=== PATIENT | female | born 1950 | race Caucasian/White ===

== ENCOUNTER → 2017-12-03 | Day surgery (SDC) | payer MEDICARE, OTHER ==
[~2017-12-03] MED LIST: Lactated Ringers 1,000 ML IV SCH; Propofol 200 MG/20 ML SDV IV ONE
[2017-12-03 11:23] VITALS: BP 113/67
--- NOTE | 2017-12-03 11:36 | OR ---
DATE OF OPERATION: 12/03/2017 PREOPERATIVE DIAGNOSIS: HISTORY OF DYSPLASTIC POLYPS. POSTOPERATIVE DIAGNOSIS: HISTORY OF DYSPLASTIC POLYPS. SURGEON: Brendan Granados MD PROCEDURE: COLONOSCOPY TO RIGHT COLON. ANESTHESIA: ASSISTANT BOOKKEEPER due to morbid obesity. COMPLICATIONS: None. SPECIMEN: None. FINDINGS: Normal full length colonoscopy to right colon. RECOMMENDATIONS: Follow up colonoscopy in 3-5 years. INDICATIONS: The patient has a history of polyp removal. I believe one of her polyps in the past was dysplastic and she has had every two years scope since then. DESCRIPTION OF PROCEDURE: The patient was prepped and draped, placed in the left lateral decubitus position. A lubricated Olympus colonoscope was inserted and with significant amount of difficulty advanced to the hepatic flexure. The patient is markedly tortuous especially through the transverse colon, it was very difficult and we had to put her in two or three different positions to traverse this area. We were able to get the scope into the hepatic flexure region. Looks like we are able to look down the ascending colon, but we were unable to get over to the cecal pouch after repeated attempts. The bowel prep was fine. Upon withdrawal of the scope of what we could see of the distal right colon, transverse and descending areas were all benign. The sigmoid colon had no signs of any polyps, masses, ulcerations, or bleeding sites. No vascular abnormalities or signs of colitis. The rectal vault was unremarkable. Retroflexion showed no apparent lesions. Air was suctioned. Scope removed without complication. ESSENCE/PIETRO /[id number]
== END ==
LOC: CC.SDS 08:40
PROVIDERS: ATTEND Family Medicine
DX: Z12.11 Encounter for screening for malignant neoplasm of colon (principal); K56.2 Volvulus; Z86.010 Personal history of colon polyps; I10 Essential (primary) hypertension; E78.5 Hyperlipidemia, unspecified; E03.9 Hypothyroidism, unspecified; M19.90 Unspecified osteoarthritis, unspecified site; K21.9 Gastro-esophageal reflux disease without esophagitis; E55.9 Vitamin D deficiency, unspecified; Z88.5 Allergy status to narcotic agent; Z88.8 Allergy status to other drugs, medicaments and biological substances; Z88.2 Allergy status to sulfonamides
CPT/HCPCS: J2704; J7120

== ENCOUNTER → 2018-11-24 | Day surgery (SDC) | payer MEDICARE, OTHER ==
[~2018-11-24] MED LIST changes: +ALPRAZolam 0.5 MG Tab.DIS (ODT) PO ONE; +ALPRAZolam ODT 0.25 MG Tab ONE; -Lactated Ringers 1,000 ML IV SCH; +Lidocaine 1% 20 ML MDV ONE; -Propofol 200 MG/20 ML SDV IV ONE
[2018-11-24 08:04] VITALS: BP 130/73; PULSE 62
== END ==
LOC: CC.SDS 07:59
PROVIDERS: ATTEND Family Medicine
DX: I83.11 Varicose veins of right lower extremity with inflammation (principal); I83.811 Varicose veins of right lower extremity with pain

== ENCOUNTER → 2018-12-06 | Day surgery (SDC) | payer MEDICARE, OTHER ==
[~2018-12-06] MED LIST changes: -ALPRAZolam 0.5 MG Tab.DIS (ODT) PO ONE; -ALPRAZolam ODT 0.25 MG Tab ONE
[2018-12-06 08:59] VITALS: BP 135/75; PULSE 60
== END ==
LOC: CC.SDS 07:51
PROVIDERS: ATTEND Family Medicine
DX: I83.812 Varicose veins of left lower extremity with pain (principal)
CPT/HCPCS: A4216

== ENCOUNTER → 2019-06-30 | Day surgery (SDC) | payer MEDICARE, OTHER ==
[~2019-06-30] MED LIST changes: +Glycopyrrolate 0.2 MG/ML SDV IVPUSH ONE; +Lactated Ringers 1,000 ML IV SCH; -Lidocaine 1% 20 ML MDV ONE; +Propofol 200 MG/20 ML SDV IV ONE; +fentaNYL 100 MCG/2 ML SDV IV ONE
[2019-06-30 08:58] VITALS: BP 121/70; PULSE 89
--- NOTE | 2019-06-30 14:29 | OR ---
DATE OF OPERATION: 06/30/2019 PREOPERATIVE DIAGNOSIS: GASTROESOPHAGEAL REFLUX DISEASE, DYSPEPSIA. POSTOPERATIVE DIAGNOSIS: GASTROESOPHAGEAL REFLUX DISEASE, DYSPEPSIA. SURGEON: Brendan Granados MD PROCEDURE: DIAGNOSTIC ESOPHAGOGASTRODUODENOSCOPY WITH BIOPSIES X2, CARRIE. ANESTHESIA: MAC. COMPLICATIONS: None. SPECIMEN: 1. Anastomosis biopsy x2. 2. CLOtest. FINDINGS: 1. Full-length EGD. 2. Status post gastric stapling. 3. Anastomotic ulcer. 4. Small recurrent hiatal hernia. RECOMMENDATIONS: The patient will be placed on proton pump therapy and have followup with Dr. Montiel at [facility]. INDICATIONS: The patient had a hernia repair at the time of stapling procedure of her stomach in 1983. She has been having increasing dyspepsia and heartburn, similar to the symptoms she felt at the time of her hernia repair. Dr. Montiel sent her for diagnostic scope. DESCRIPTION OF PROCEDURE: The patient was prepped and draped, placed in the left lateral decubitus position. A lubricated Olympus gastroscope was inserted over a bit, advanced to cricopharyngeus area, and easily intubated in the esophagus. The esophageal lining was benign in its entire course. The Z-line was crisp around 38 cm. There was a small recurrent hernia, but not very large. There was no distal esophagitis, stricturing, ulceration, nor Humphrey's changes, and I saw no spontaneous reflux. The scope was advanced to the stomach. The patient had a prior gastric bypass type procedure and the anastomosis looked fine other than some inflammation and a small ulcer at the anastomosis site. Biopsy of that was taken along with a CLOtest. The rest of the fundus and cardia portion of the stomach appeared benign. I was able to retroflex and there was a small recurrent hernia present, seen from above and below. Air was then suctioned, scope removed without complication. ESSENCE/PIETRO /[id number]
== END ==
LOC: CC.SDS 07:07
PROVIDERS: ATTEND Family Medicine
DX: K29.50 Unspecified chronic gastritis without bleeding (principal); K44.9 Diaphragmatic hernia without obstruction or gangrene; K28.9 Gastrojejunal ulcer, unspecified as acute or chronic, without hemorrhage or perforation; E78.5 Hyperlipidemia, unspecified; E03.9 Hypothyroidism, unspecified; I10 Essential (primary) hypertension; K21.9 Gastro-esophageal reflux disease without esophagitis; E78.00 Pure hypercholesterolemia, unspecified; F41.9 Anxiety disorder, unspecified; Z88.2 Allergy status to sulfonamides; Z88.8 Allergy status to other drugs, medicaments and biological substances; Z79.890 Hormone replacement therapy; Z79.899 Other long term (current) drug therapy; Z98.84 Bariatric surgery status
CPT/HCPCS: 00731; 43239; 87081; J2704; J3010; J3490; J7120

== ENCOUNTER → 2020-11-29 | Day surgery (SDC) | payer MEDICARE, OTHER ==
[~2020-11-29] MED LIST changes: -Glycopyrrolate 0.2 MG/ML SDV IVPUSH ONE; -Propofol 200 MG/20 ML SDV IV ONE; +Propofol 200 MG/20 ML SDV ONE; -fentaNYL 100 MCG/2 ML SDV IV ONE
[2020-11-29 12:06] VITALS: BP 119/68; PULSE 55
--- NOTE | 2020-11-30 06:36 | OR ---
DATE OF OPERATION: 11/29/2020 PREOPERATIVE DIAGNOSIS: HISTORY OF POLYPS. POSTOPERATIVE DIAGNOSIS: HISTORY OF POLYPS. SURGEON: Brendan Granados MD PROCEDURE: FULL-LENGTH COLONOSCOPY WITH FORCEPS POLYP REMOVAL X2. ANESTHESIA: MAC. COMPLICATIONS: None. SPECIMEN: Two small sessile polyps, each less than 0.5 cm. RECOMMENDATIONS: Followup colonoscopy in 5 years. INDICATIONS: The patient has multiple prior colonoscopies for polyps being removed, I believe 6 in the last 12 years. She is in for a 3-year followup. DESCRIPTION OF PROCEDURE: The patient was prepped and draped, placed in the left lateral decubitus position. A lubricated Olympus colonoscope was inserted and ultimately advanced to the cecum. Direct visualization of the ileocecal valve and appendiceal orifice was accomplished. The bowel prep was adequate. There were areas of significant amount of stool, but most of this was liquid and able to be suctioned. Certainly, smaller lesions may have been missed upon withdrawal. Just outside the cecal pouch, the patient had a small 3 to 4 mm flat tubular adenoma removed in its entirety with forceps biopsy x2. The rest of the ascending and transverse colons were benign. At the splenic flexure, the patient had a second small sessile polyp also measuring about 4 mm, removed with a forceps in its entirety. The rest of the descending colon was benign. The patient does have a few scattered diverticula throughout the sigmoid area, mild in severity. There were no other polyps, masses, ulceration, or bleeding sites. No vascular abnormalities or signs of colitis. The rectal vault was benign. Retroflexion showed no perianal lesions. Air was suctioned. The scope removed without complication. ESSENCE/PIETRO /[id number]
== END ==
LOC: CC.SDS 10:06
PROVIDERS: ATTEND Family Medicine
DX: Z12.11 Encounter for screening for malignant neoplasm of colon (principal); D12.0 Benign neoplasm of cecum; K63.5 Polyp of colon; K57.30 Diverticulosis of large intestine without perforation or abscess without bleeding; E78.5 Hyperlipidemia, unspecified; E55.9 Vitamin D deficiency, unspecified; K21.9 Gastro-esophageal reflux disease without esophagitis; E03.9 Hypothyroidism, unspecified; M16.11 Unilateral primary osteoarthritis, right hip; I10 Essential (primary) hypertension; E66.9 Obesity, unspecified; G47.30 Sleep apnea, unspecified; F41.9 Anxiety disorder, unspecified; Z79.899 Other long term (current) drug therapy; Z90.49 Acquired absence of other specified parts of digestive tract; Z98.890 Other specified postprocedural states; Z79.890 Hormone replacement therapy; Z88.8 Allergy status to other drugs, medicaments and biological substances; Z88.2 Allergy status to sulfonamides
CPT/HCPCS: 45380; J2704; J7120; 00812; 88305; 99100

== ENCOUNTER → 2021-11-21 | Day surgery (SDC) | payer MEDICARE, OTHER ==
[~2021-11-21] MED LIST changes: +Ketamine 200 MG/20 ML MDV ONE; +Lidocaine 2% 20 ML MDV ONE; +fentaNYL 50 MCG/ML SDV ONE
[2021-11-21 11:12] VITALS: BP 134/70; PULSE 54
== END ==
LOC: CC.SDS 07:13
PROVIDERS: ATTEND Family Medicine
DX: K31.89 Other diseases of stomach and duodenum (principal); K21.00 Gastro-esophageal reflux disease with esophagitis, without bleeding; E55.9 Vitamin D deficiency, unspecified; E78.5 Hyperlipidemia, unspecified; F41.9 Anxiety disorder, unspecified; G47.30 Sleep apnea, unspecified; I10 Essential (primary) hypertension; M19.90 Unspecified osteoarthritis, unspecified site; Z88.8 Allergy status to other drugs, medicaments and biological substances; Z88.2 Allergy status to sulfonamides; Z79.899 Other long term (current) drug therapy; Z98.84 Bariatric surgery status; Z98.0 Intestinal bypass and anastomosis status; Z90.49 Acquired absence of other specified parts of digestive tract; Z98.890 Other specified postprocedural states
CPT/HCPCS: 87081; 88305; J2704; J3010; J7120

== ENCOUNTER → 2022-04-15 | Day surgery (SDC) | payer MEDICARE, OTHER ==
[~2022-04-15] MED LIST changes: -Ketamine 200 MG/20 ML MDV ONE; -Lactated Ringers 1,000 ML IV SCH; +Lidocaine 1% 5 ML VIAL ONE; +Lidocaine 1% w/EPINEPHrine 100 ML, Sodium Chloride 0.9% 900 ML, Sodium Bicarbonate 10 MEQ INJECT ONE; -Lidocaine 2% 20 ML MDV ONE; -Propofol 200 MG/20 ML SDV ONE; -fentaNYL 50 MCG/ML SDV ONE
[2022-04-15 12:06] VITALS: BP 133/67; PULSE 65
== END ==
LOC: CC.SDS 11:42
PROVIDERS: ATTEND Family Medicine
DX: I87.2 Venous insufficiency (chronic) (peripheral) (principal); Z88.3 Allergy status to other anti-infective agents; Z88.8 Allergy status to other drugs, medicaments and biological substances; Z88.2 Allergy status to sulfonamides; Z79.899 Other long term (current) drug therapy; Z79.890 Hormone replacement therapy
CPT/HCPCS: A4216; C1769; J3490; J7030

== ENCOUNTER 2023-07-16 09:12 | Day surgery (SDC) | payer MEDICARE ==
[2023-07-16] MEDS: Lactated Ringers 1,000 ML IV SCH (09:25)
[2023-07-16] MEDS ORDERED: Ketamine 200 MG/20 ML MDV ONE (09:40)
[2023-07-16] MEDS ORDERED: Propofol 200 MG/20 ML SDV ONE ×2 (09:40)
[2023-07-16] MEDS ORDERED: fentaNYL 50 MCG/ML SDV ONE (09:40)
[2023-07-16 11:18] VITALS: BP 145/70; PULSE 53
== END 2023-07-16 11:05 | disposition home or self-care (01) ==
LOC: CC.SDS 09:12
PROVIDERS: ATTEND Family Medicine
DX: Z12.11 Encounter for screening for malignant neoplasm of colon (principal); D12.0 Benign neoplasm of cecum; K57.30 Diverticulosis of large intestine without perforation or abscess without bleeding; I10 Essential (primary) hypertension; F41.9 Anxiety disorder, unspecified; K21.9 Gastro-esophageal reflux disease without esophagitis; E03.9 Hypothyroidism, unspecified; M19.031 Primary osteoarthritis, right wrist; M19.032 Primary osteoarthritis, left wrist; Z79.890 Hormone replacement therapy; Z79.899 Other long term (current) drug therapy; Z88.2 Allergy status to sulfonamides; Z88.1 Allergy status to other antibiotic agents; Z86.010 Personal history of colon polyps
CPT/HCPCS: 00811; 45385; 99100; J2704; J3010; J7120; 88305; J3490